=== PATIENT | female | born 2000 | race Asian ===

== ENCOUNTER 2021-05-09 12:33 | Emergency (ER) | payer SELFPAY ==
[~2021-05-09] VITALS: Ht 175.3 cm; Wt 54.5 kg
[2021-05-09 12:46] VITALS: BP 105/67
[2021-05-09] MEDS ORDERED: AZITHROMYCIN 500 MG TABLET PO ONE (15:45)
[2021-05-09] MEDS ORDERED: LIDOCAINE/PF 1% 2 ML VIAL IM ONE (15:45)
[2021-05-09] MEDS ORDERED: CefTRIAXone SODIUM 1 GM/VIAL IM ONE (15:45)
== END 2021-05-09 16:22 | disposition home or self-care (01) ==
LOC: EMS 12:33
DX: N34.2 Other urethritis (principal); F17.200 Nicotine dependence, unspecified, uncomplicated; F12.90 Cannabis use, unspecified, uncomplicated; Z88.8 Allergy status to other drugs, medicaments and biological substances
CPT/HCPCS: 87491; 87591; 96372; 99283; J0696; J3490; Q9967